=== PATIENT | female | born 1955 | race Caucasian/White ===

== ENCOUNTER → 2016-07-23 | Outpatient (CLI) | payer MEDICARE ==
[~2016-07-23] MED LIST: ACET500T3 PO; AMBI5TAB PO; ASPI1TAB69 PO; BENA25CA2 PO; BIOIDENTICAL HORM TOP; CHOL1CAP32 PO; FERR1TAB21 PO; GABA PO; GUAI100S5 PO; LACTCAP8 PO; LORA-373 PO; LORA1TAB12 PO; MULTCAP2 PO; OMEG1CAP28 PO; ROLLER WALKER1 MI1; VENTAER INH; VITA250T3 PO; ZOVI400T PO; [UNRECOGNIZED DRUG - CODE] PO
== END ==
LOC: PLAB 13:42
PROVIDERS: ATTEND Family Medicine
DX: M81.0 Age-related osteoporosis without current pathological fracture (principal)
CPT/HCPCS: 36415; 82306

== ENCOUNTER → 2016-10-21 | Outpatient (CLI) | payer MEDICARE ==
[~2016-10-21] MED LIST changes: -GABA PO; -GUAI100S5 PO; -LORA-373 PO
[2016-10-21 17:21] LABS: AUTOMATED NEUTROPHIL # 1.6 TH/MM3 (1.8-7.7); BASOPHIL % 0.6 % (0.0-2.0); EOSINOPHIL % 0.7 % (0.0-4.0); HEMATOCRIT 37.2 % (35.0-46.0); HEMO FLAGS DIFF FINAL; LYMPH % 35.3 % (9.0-44.0); LYMPHOCYTE # 1.1 TH/MM3 (1.0-4.8); MEAN CELL VOLUME 87.7 FL (80.0-100.0); MEAN CORPUSCULAR HEMOGLOBIN 28.9 PG (27.0-34.0); MONO % 10.6 % (0.0-8.0); NEUT % 52.8 % (16.0-70.0); PLATELET COUNT 204 TH/MM3 (150-450); RED BLOOD COUNT 4.24 MIL/MM3 (4.00-5.30); RED CELL DISTRIBUTION WIDTH 13.3 % (11.6-17.2)
== END ==
LOC: PLAB 14:27
PROVIDERS: ATTEND Family Medicine
DX: E55.9 Vitamin D deficiency, unspecified (principal)
CPT/HCPCS: 36415; 82652; 85025

== ENCOUNTER → 2017-02-17 | Outpatient (CLI) | payer MEDICARE, OTHER ==
[~2017-02-17] MED LIST changes: +CIPR500T2 PO; +COUM4TAB PO; +COUM5TAB PO; +ENDO10TA8 PO; +ENOX60P SQ; +HYDR-3516 PO; +MACR100C2 PO; +OXYC-259 PO; +OXYC1TAB63 PO; +PERI8.6T PO; +PRAD150C PO; +TRAM50TA PO; +WARF-21 PO; +WARF-23 PO; +WARF-58 PO; +WARF-60 PO; +[UNRECOGNIZED DRUG - REMARK] SQ
[2017-02-17 12:22] LABS: POTASSIUM 4.2 MEQ/L (3.5-5.1)
[2017-02-17 12:25] LABS: BICARBONATE 29.6 MEQ/L (21.0-32.0)
== END ==
LOC: PLAB 10:41
PROVIDERS: ATTEND Family Medicine
DX: M81.0 Age-related osteoporosis without current pathological fracture (principal); I34.0 Nonrheumatic mitral (valve) insufficiency; R07.9 Chest pain, unspecified
CPT/HCPCS: 80048; 82306; 85379

== ENCOUNTER → 2017-02-20 | Outpatient (CLI) | payer MEDICARE, OTHER ==
[~2017-02-20] MED LIST changes: -TRAM50TA PO
[2017-02-20 17:09] LABS: ALKALINE PHOSPHATASE 105 U/L (45-117); TOTAL BILIRUBIN ADULT 0.5 MG/DL (0.2-1.0)
[2017-02-20 17:44] LABS: ALT (GPT) 20 U/L (10-53); ANION GAP 9 MEQ/L (5-15); AST (GOT) 43 U/L (15-37); BICARBONATE 26.5 MEQ/L (21.0-32.0); BLOOD UREA NITROGEN 9 MG/DL (7-18); CHLORIDE 102 MEQ/L (98-107); GLOMERULAR FILTRATION RATE 79 ML/MIN (>89); SODIUM (NA) 137 MEQ/L (136-145)
[2017-02-20 18:00] LABS: POTASSIUM 4.4 MEQ/L (3.5-5.1)
== END ==
LOC: PLAB 13:39
PROVIDERS: ATTEND Family Medicine
DX: R30.0 Dysuria (principal); S22.39XD Fracture of one rib, unspecified side, subsequent encounter for fracture with routine healing; X58.XXXD Exposure to other specified factors, subsequent encounter
CPT/HCPCS: 36415; 80053

== ENCOUNTER → 2017-02-21 | Outpatient (CLI) | payer MEDICARE, OTHER ==
[2017-02-21 12:49] LABS: AUTOMATED NEUTROPHIL # 3.4 TH/MM3 (1.8-7.7); BASOPHIL % 0.8 % (0.0-2.0); EOSINOPHIL % 0.7 % (0.0-4.0); LYMPH % 21.2 % (9.0-44.0); LYMPHOCYTE # 0.9 TH/MM3 (1.0-4.8); MEAN CELL VOLUME 83.4 FL (80.0-100.0); MEAN CORPUSCULAR HGB CONC 33.5 % (32.0-36.0); MONO % 5.3 % (0.0-8.0); PLATELET COUNT 288 TH/MM3 (150-450); RED BLOOD COUNT 4.32 MIL/MM3 (4.00-5.30); RED CELL DISTRIBUTION WIDTH 13.7 % (11.6-17.2); WHITE BLOOD COUNT 4.5 TH/MM3 (4.0-11.0)
[2017-02-21 12:55] LABS: HEMO FLAGS AUTO DIFF
[2017-02-21 14:00] LABS: SCAN/DIFF AUTO DIFF CONFIRMED
== END ==
LOC: PLAB 12:19
PROVIDERS: ATTEND Family Medicine
DX: S36.112A Contusion of liver, initial encounter (principal); X58.XXXA Exposure to other specified factors, initial encounter
CPT/HCPCS: 36415; 85025

== ENCOUNTER 2017-03-07 19:07 | Observation (INO) | payer MEDICARE, OTHER ==
[~2017-03-07] VITALS: Ht 165.1 cm; Wt 53.0 kg
[~2017-03-07 19:07] MED LIST changes: -COUM4TAB PO; -COUM5TAB PO; -ENOX60P SQ; -HYDR-3516 PO; -MACR100C2 PO; -OXYC1TAB63 PO; -WARF-21 PO; -WARF-23 PO; -WARF-58 PO; -WARF-60 PO; -[UNRECOGNIZED DRUG - REMARK] SQ
[2017-03-07 19:11] VITALS: BP 130/83; PULSE 88; RESP 18; TEMP 99.8; O2SAT 96
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
[2017-03-07] MEDS ORDERED: LACTULOSE SYRUP 20 GM/30 ML CUP PO PRN (21:45)
[2017-03-07] MEDS ORDERED: SENNOSIDES 8.6 MG TAB PO PRN (21:45)
[2017-03-07] MEDS ORDERED: MAGNESIUM HYDROXIDE SUSP 30 ML CUP PO PRN (21:45)
[2017-03-07] MEDS ORDERED: NALOXONE HCL 0.4 MG/ML AMP IV PRN (21:45)
[2017-03-07] MEDS ORDERED: BISACODYL 10 MG SUPP RECTAL PRN (21:45)
[2017-03-07] MEDS ORDERED: SODIUM CHLORIDE 0.9% FLUSH 10 ML FLUSH IV FLUSH PRN (21:45)
[2017-03-07] MEDS ORDERED: ONDANSETRON HCL 4 MG/2 ML VIAL IVP PRN (21:45)
[2017-03-07] MEDS ORDERED: ALBUTEROL SULFATE 90 MCG/ACT HFA 8 GM INHALER INH PRN (21:45)
[2017-03-07] MEDS ORDERED: ACETAMINOPHEN 325 MG TAB PO PRN (21:45)
[2017-03-07 22:00] VITALS: BP 132/84; PULSE 77; RESP 16; O2SAT 97
[2017-03-07] MEDS ORDERED: PILL SPLITTER OTHER PRN (22:00)
[2017-03-07] MEDS: DABIGATRAN ETEXILATE 150 MG CAP PO SCH (22:50)
[2017-03-08] VITALS (9 sets, daily range): BP systolic 96–147; BP diastolic 57–83; PULSE 71–81; RESP 18–20; TEMP 97.8–98.7; O2SAT 95–100
[2017-03-08] MEDS ORDERED: oxyCODONE/ACETAMINOPHEN 10 MG/325 MG TAB PO SCH
[2017-03-08] MEDS: oxyCODONE/ACETAMINOPHEN 10 MG/325 MG TAB PO PRN ×3 (00:08→20:06)
[2017-03-08] MEDS: LORazepam 1 MG TAB PO PRN ×2 (01:47→20:30)
[2017-03-08 08:50] LABS: AUTOMATED NEUTROPHIL # 1.2 TH/MM3 (1.8-7.7); EOSINOPHIL # 0.1 TH/MM3 (0-0.4); EOSINOPHIL % 2.6 % (0.0-4.0); HEMATOCRIT 33.5 % (35.0-46.0); HEMO FLAGS DIFF FINAL; LYMPH % 42.1 % (9.0-44.0); LYMPHOCYTE # 1.3 TH/MM3 (1.0-4.8); MEAN CORPUSCULAR HEMOGLOBIN 28.2 PG (27.0-34.0); MEAN CORPUSCULAR HGB CONC 33.1 % (32.0-36.0); MONO % 14.3 % (0.0-8.0); PLATELET COUNT 248 TH/MM3 (150-450); RED BLOOD COUNT 3.94 MIL/MM3 (4.00-5.30); RED CELL DISTRIBUTION WIDTH 14.7 % (11.6-17.2); WHITE BLOOD COUNT 3.1 TH/MM3 (4.0-11.0)
[2017-03-08 08:58] LABS: APTT (PATIENT) 34.7 SEC (24.3-30.1); INTERNATIONAL NORMALIZED RATIO 1.1 RATIO; PROTHROMBIN TIME - PATIENT 11.7 SEC (9.8-11.6)
[2017-03-08] MEDS ORDERED: BIOIDENTICAL HORM SCH (09:00)
[2017-03-08] MEDS ORDERED: ASCORBIC ACID 250 MG PO SCH (09:00)
[2017-03-08] MEDS ORDERED: NON-FORMULARY DRUG (Omega-3-Acid Ethyl Esters 2 GM) PO SCH (09:00)
[2017-03-08] MEDS: ASCORBIC ACID 500 MG TAB PO SCH (09:00)
[2017-03-08] MEDS ORDERED: [UNRECOGNIZED DRUG - OTHER] OTHER SCH (09:00)
[2017-03-08] MEDS ORDERED: [UNRECOGNIZED DRUG - OTHER] PO SCH (09:00)
[2017-03-08] MEDS: SODIUM CHLORIDE 0.9% FLUSH 10 ML FLUSH IV FLUSH SCH ×2 (09:24→20:21)
[2017-03-08] MEDS: DOCUSATE SODIUM 50 MG/SENNA 8.6 MG TAB PO SCH ×2 (09:24→20:04)
[2017-03-08 09:45] LABS: ALKALINE PHOSPHATASE 95 U/L (45-117); ALT (GPT) 21 U/L (10-53); ANION GAP 9 MEQ/L (5-15); AST (GOT) 23 U/L (15-37); BLOOD UREA NITROGEN 10 MG/DL (7-18); CHLORIDE 107 MEQ/L (98-107); GLOMERULAR FILTRATION RATE 93 ML/MIN (>89); POTASSIUM 3.8 MEQ/L (3.5-5.1); SODIUM (NA) 141 MEQ/L (136-145); TOTAL BILIRUBIN ADULT 0.3 MG/DL (0.2-1.0)
[2017-03-08] MEDS: DABIGATRAN ETEXILATE 150 MG CAP PO SCH ×2 (10:03→20:04)
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
--- NOTE | 2017-03-08 14:25 | HHI.FF ---
Face to Face Verification Diagnosis: (1) Pulmonary embolism (2) Liver laceration, closed Home Health Nursing Order: Medical education Signs/symptoms of disease process Medication education-adverse effect Instructions: INR checks, Lovenox SQ administration education I have seen patient Clemente Holloway on 03/08/17. My clinical findings support the need for the requested home health care services because: Injectable med education/admin I certify that my clinical findings support that this patient is homebound because: Need for psychosocial assistance Zach Huffman MD R3 Mar 08, 2017 14:25
[2017-03-08] MEDS: ENOXAPARIN SODIUM 60 MG/0.6 ML SYRINGE SQ SCH (15:07)
[2017-03-08 15:44] LABS: REVIEW FLAG FINAL
[2017-03-08 16:15] LABS: TRANSFERRIN IRON PROFILE 247 MG/DL (200-360)
[2017-03-08 16:18] LABS: FERRITIN 78 NG/ML (8-252)
[2017-03-08] MEDS ORDERED: ENOX60P SQ (16:51)
[2017-03-08] MEDS ORDERED: WARF-23 PO (17:02)
[2017-03-09 00:23] VITALS: BP 100/61; PULSE 78; RESP 16; TEMP 98.5; O2SAT 100
[2017-03-09] MEDS: oxyCODONE/ACETAMINOPHEN 10 MG/325 MG TAB PO PRN (02:40)
[2017-03-09] MEDS: ENOXAPARIN SODIUM 60 MG/0.6 ML SYRINGE SQ SCH (02:42)
[2017-03-09 03:57] VITALS: TEMP 98.6
[2017-03-09] MEDS: LORazepam 1 MG TAB PO PRN (04:05)
[2017-03-09 04:39] VITALS: BP 101/59; PULSE 74; RESP 18; TEMP 98.4; O2SAT 97
[2017-03-09 07:11] VITALS: O2SAT 98
[2017-03-09 07:45] VITALS: BP 95/58; PULSE 67; RESP 14; TEMP 97.8; O2SAT 97
[2017-03-09] MEDS: SODIUM CHLORIDE 0.9% FLUSH 10 ML FLUSH IV FLUSH SCH (09:00)
[2017-03-09] MEDS: ASCORBIC ACID 500 MG TAB PO SCH (09:00)
[2017-03-09] MEDS: DOCUSATE SODIUM 50 MG/SENNA 8.6 MG TAB PO SCH (09:00)
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
[2017-03-09] MEDS ORDERED: WARFARIN SOD 5 MG TAB PO SCH (16:00)
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
[2017-03-11] MEDS ORDERED: [UNRECOGNIZED DRUG - REMARK] SQ (11:23)
[2017-03-13] MEDS ORDERED: WARF-21 PO (08:37)
[2017-03-13 13:51] LABS: THROMBIN TIME FOR LA ND sec (13-19)
[2017-03-14] MEDS ORDERED: WARF-60 PO (16:11)
[2017-03-22] MEDS ORDERED: MACR100C2 PO (10:10)
[2017-03-27] MEDS ORDERED: WARF-60 PO (11:18)
[2017-03-27] MEDS ORDERED: COUM5TAB PO (11:18)
[2017-03-27] MEDS ORDERED: OXYC1TAB63 PO (16:13)
[2017-04-04] MEDS ORDERED: COUM4TAB PO (16:37)
[2017-04-15] MEDS ORDERED: WARF-58 PO (10:56)
[2017-04-15] MEDS ORDERED: OXYC1TAB63 PO (11:27)
[2017-04-21] MEDS ORDERED: HYDR-3516 PO (15:49)
== END 2017-03-09 14:11 | disposition home or self-care (01) ==
LOC: NEPD 19:07 → NEDA 22:02 → NEPFCDU 03-08 01:37
PROVIDERS: ADMIT Family Medicine; ATTEND Family Medicine
DX: I26.99 Other pulmonary embolism without acute cor pulmonale (principal); S36.113A Laceration of liver, unspecified degree, initial encounter; S22.49XA Multiple fractures of ribs, unspecified side, initial encounter for closed fracture; I48.91 Unspecified atrial fibrillation; D72.819 Decreased white blood cell count, unspecified; D64.9 Anemia, unspecified; F43.10 Post-traumatic stress disorder, unspecified; F32.9 Major depressive disorder, single episode, unspecified; M85.80 Other specified disorders of bone density and structure, unspecified site; Z79.01 Long term (current) use of anticoagulants; Z95.2 Presence of prosthetic heart valve; S36.112D Contusion of liver, subsequent encounter
CPT/HCPCS: 80053; 81240; 81241; 81291; 82232; 82728; 83090; 83540; 83550; 83695; 85014; 85018; 85025; 85240; 85303; 85306; 85307; 85597; 85598; 85610; 85613; 85730; 86147; 96372; 99285; G0378; J1650; 36415; 85027

== ENCOUNTER → 2017-03-07 | Outpatient (CLI) | payer MEDICARE, OTHER ==
[~2017-03-07] MED LIST changes: -AMBI5TAB PO; -BENA25CA2 PO; -OXYC-259 PO
[2017-03-07 13:43] LABS: HEMATOCRIT 39.4 % (35.0-46.0); MEAN CELL VOLUME 85.8 FL (80.0-100.0); MEAN CORPUSCULAR HEMOGLOBIN 27.3 PG (27.0-34.0); MEAN CORPUSCULAR HGB CONC 31.8 % (32.0-36.0); PLATELET COUNT 293 TH/MM3 (150-450); RED BLOOD COUNT 4.59 MIL/MM3 (4.00-5.30); RED CELL DISTRIBUTION WIDTH 14.4 % (11.6-17.2); REVIEW FLAG FINAL
[2017-03-07 13:54] LABS: ALT (GPT) 25 U/L (10-53); ANION GAP 10 MEQ/L (5-15); AST (GOT) 25 U/L (15-37); BICARBONATE 26.8 MEQ/L (21.0-32.0); BLOOD UREA NITROGEN 11 MG/DL (7-18); CHLORIDE 104 MEQ/L (98-107); GLOMERULAR FILTRATION RATE 74 ML/MIN (>89); GLUCOSE,FASTING 81 MG/DL (74-99); POTASSIUM 4.7 MEQ/L (3.5-5.1); SODIUM (NA) 141 MEQ/L (136-145)
[2017-03-07 13:57] LABS: ALKALINE PHOSPHATASE 93 U/L (45-117); TOTAL BILIRUBIN ADULT 0.5 MG/DL (0.2-1.0)
== END ==
LOC: PLAB 12:02
PROVIDERS: ATTEND Family Medicine
DX: S36.112D Contusion of liver, subsequent encounter (principal); X58.XXXD Exposure to other specified factors, subsequent encounter
CPT/HCPCS: 36415; 80053; 85027

== ENCOUNTER → 2017-03-11 | Outpatient (CLI) | payer MEDICARE, OTHER ==
[~2017-03-11] MED LIST changes: -ACET500T3 PO; -ASPI1TAB69 PO; +COUM4TAB PO; +COUM5TAB PO; +ENOX60P SQ; -FERR1TAB21 PO; +HYDR-3516 PO; +MACR100C2 PO; -MULTCAP2 PO; +OXYC1TAB63 PO; +WARF-21 PO; +WARF-23 PO; +WARF-58 PO; +WARF-60 PO; -[UNRECOGNIZED DRUG - CODE] PO; +[UNRECOGNIZED DRUG - REMARK] SQ
[2017-03-11 14:35] LABS: INTERNATIONAL NORMALIZED RATIO 1.1 RATIO
[2017-03-11 16:23] LABS: AUTOMATED NEUTROPHIL # 2.3 TH/MM3 (1.8-7.7); BASOPHIL % 0.9 % (0.0-2.0); EOSINOPHIL # 0.1 TH/MM3 (0-0.4); EOSINOPHIL % 1.5 % (0.0-4.0); HEMATOCRIT 36.2 % (35.0-46.0); HEMO FLAGS DIFF FINAL; LYMPH % 21.3 % (9.0-44.0); LYMPHOCYTE # 0.7 TH/MM3 (1.0-4.8); MEAN CELL VOLUME 84.8 FL (80.0-100.0); MEAN CORPUSCULAR HEMOGLOBIN 27.8 PG (27.0-34.0); MEAN CORPUSCULAR HGB CONC 32.8 % (32.0-36.0); MONO % 8.5 % (0.0-8.0); NEUT % 67.8 % (16.0-70.0); PLATELET COUNT 251 TH/MM3 (150-450); RED BLOOD COUNT 4.26 MIL/MM3 (4.00-5.30); RED CELL DISTRIBUTION WIDTH 15.1 % (11.6-17.2); WHITE BLOOD COUNT 3.4 TH/MM3 (4.0-11.0)
[2017-03-11 16:35] LABS: BACTERIA, URINE MOD /hpf; BLOOD, URINE NEG (NEG); COMMENT (UR) CULTURE INDICATED; CULTURE IF INDICATED CULTURE INDICATED; GLUCOSE,URINE NEG (NEG); HYALINE CAST, URINE 12 /lpf (RARE); KETONE, URINE TRACE mg/dL (NEG); MUCUS URINE MANY /lpf (OCC); NITRITE,URINE NEG (NEG); SQUAMOUS EPITHELIAL CELL URINE <1 /hpf (0-5); URINE COLOR DARK-YELLOW (YELLW/STRAW)
[2017-03-11 17:25] LABS: ALKALINE PHOSPHATASE 88 U/L (45-117); ALT (GPT) 115 U/L (10-53); ANION GAP 8 MEQ/L (5-15); AST (GOT) 105 U/L (15-37); BICARBONATE 28.5 MEQ/L (21.0-32.0); BLOOD UREA NITROGEN 9 MG/DL (7-18); CHLORIDE 105 MEQ/L (98-107); GLOMERULAR FILTRATION RATE 72 ML/MIN (>89); GLUCOSE,FASTING 87 MG/DL (74-99); POTASSIUM 4.2 MEQ/L (3.5-5.1); SODIUM (NA) 141 MEQ/L (136-145); TOTAL BILIRUBIN ADULT 0.2 MG/DL (0.2-1.0)
== END ==
LOC: PLAB 12:38
PROVIDERS: ATTEND Family Medicine
DX: I26.99 Other pulmonary embolism without acute cor pulmonale (principal); R35.0 Frequency of micturition; R82.90 Unspecified abnormal findings in urine
CPT/HCPCS: 36415; 80053; 81001; 85025; 85610; 87086; 99214; G0463

== ENCOUNTER → 2017-03-14 | Outpatient (CLI) | payer MEDICARE, OTHER ==
[~2017-03-14] MED LIST changes: -PRAD150C PO; -WARF-23 PO
[2017-03-14 11:32] LABS: INTERNATIONAL NORMALIZED RATIO 3.8 RATIO
== END ==
LOC: CLAB 10:58
PROVIDERS: ATTEND Family Medicine
DX: I26.99 Other pulmonary embolism without acute cor pulmonale (principal)
CPT/HCPCS: 36415; 85610

== ENCOUNTER → 2017-03-19 | Outpatient (CLI) | payer MEDICARE, OTHER ==
[~2017-03-19] MED LIST changes: -CIPR500T2 PO; -ENOX60P SQ; -WARF-21 PO
[2017-03-19 13:41] LABS: INTERNATIONAL NORMALIZED RATIO 4.2 RATIO; PROTHROMBIN TIME - PATIENT 49.6 SEC (9.8-11.6)
== END ==
LOC: PLAB 12:58
PROVIDERS: ATTEND Family Medicine
DX: I26.99 Other pulmonary embolism without acute cor pulmonale (principal)
CPT/HCPCS: 36415; 85610

== ENCOUNTER → 2017-05-14 | Outpatient (CLI) | payer MEDICARE, OTHER ==
[~2017-05-14] MED LIST changes: -BIOIDENTICAL HORM TOP; -COUM4TAB PO; -COUM5TAB PO; -ENDO10TA8 PO; -MACR100C2 PO; -OXYC1TAB63 PO; -WARF-60 PO
[2017-05-14 13:57] LABS: AUTOMATED NEUTROPHIL # 1.4 TH/MM3 (1.8-7.7); BASOPHIL % 0.9 % (0.0-2.0); EOSINOPHIL % 0.7 % (0.0-4.0); HEMATOCRIT 37.7 % (35.0-46.0); HEMO FLAGS DIFF FINAL; LYMPHOCYTE # 1.2 TH/MM3 (1.0-4.8); MEAN CELL VOLUME 86.2 FL (80.0-100.0); MEAN CORPUSCULAR HEMOGLOBIN 28.2 PG (27.0-34.0); MEAN CORPUSCULAR HGB CONC 32.8 % (32.0-36.0); MONO % 10.3 % (0.0-8.0); NEUT % 48.1 % (16.0-70.0); PLATELET COUNT 298 TH/MM3 (150-450); RED BLOOD COUNT 4.37 MIL/MM3 (4.00-5.30); RED CELL DISTRIBUTION WIDTH 14.8 % (11.6-17.2); WHITE BLOOD COUNT 2.9 TH/MM3 (4.0-11.0)
[2017-05-14 14:25] LABS: INTERNATIONAL NORMALIZED RATIO 2.2 RATIO; PROTHROMBIN TIME - PATIENT 24.6 SEC (9.8-11.6)
[2017-05-14 15:01] LABS: ANION GAP 8 MEQ/L (5-15); BLOOD UREA NITROGEN 7 MG/DL (7-18); CHLORIDE 105 MEQ/L (98-107); POTASSIUM 4.3 MEQ/L (3.5-5.1); SODIUM (NA) 141 MEQ/L (136-145)
[2017-05-14 15:14] LABS: TRANSFERRIN IRON PROFILE 248 MG/DL (200-360)
[2017-05-14 15:16] LABS: ALKALINE PHOSPHATASE 89 U/L (45-117); ALT (GPT) 22 U/L (10-53); AST (GOT) 22 U/L (15-37); GLOMERULAR FILTRATION RATE 83 ML/MIN (>89); GLUCOSE,FASTING 77 MG/DL (74-99); HDL CHOLESTEROL 100.4 MG/DL (40.0-60.0); LDL CHOLESTEROL 125 MG/DL (0-99); TOTAL BILIRUBIN ADULT 0.5 MG/DL (0.2-1.0)
[2017-05-14 15:18] LABS: FERRITIN 87 NG/ML (8-252); FREE T4 1.29 NG/DL (0.76-1.46)
[2017-05-15 23:52] LABS: DEHYDROEPIANDROSTERONE SULFATE 31 mcg/dL (8-188)
== END ==
LOC: PLAB 11:34
PROVIDERS: ATTEND Dermatology MOHS-Micrographic Surgery
DX: L30.9 Dermatitis, unspecified (principal); I26.09 Other pulmonary embolism with acute cor pulmonale; E78.2 Mixed hyperlipidemia; L65.9 Nonscarring hair loss, unspecified; E55.9 Vitamin D deficiency, unspecified; Z79.899 Other long term (current) drug therapy
CPT/HCPCS: 36415; 80053; 80061; 82306; 82627; 82728; 83540; 83550; 84403; 84439; 84443; 84480; 85025; 85610

== ENCOUNTER → 2017-05-26 | Outpatient (CLI) | payer MEDICARE, OTHER ==
[2017-05-26 14:48] LABS: INTERNATIONAL NORMALIZED RATIO 1.8 RATIO; PROTHROMBIN TIME - PATIENT 20.6 SEC (9.8-11.6)
== END ==
LOC: PLAB 13:14
PROVIDERS: ATTEND Family Medicine
DX: I26.09 Other pulmonary embolism with acute cor pulmonale (principal)
CPT/HCPCS: 36415; 85610

== ENCOUNTER → 2017-06-05 | Outpatient (CLI) | payer MEDICARE, OTHER ==
[2017-06-05 15:13] LABS: PROTHROMBIN TIME - PATIENT 23.3 SEC (9.8-11.6)
== END ==
LOC: PLAB 14:13
PROVIDERS: ATTEND Family Medicine
DX: I26.09 Other pulmonary embolism with acute cor pulmonale (principal)
CPT/HCPCS: 36415; 85610

== ENCOUNTER → 2017-06-11 | Outpatient (CLI) | payer MEDICARE, OTHER ==
[2017-06-11 14:00] LABS: INTERNATIONAL NORMALIZED RATIO 1.4 RATIO; PROTHROMBIN TIME - PATIENT 14.6 SEC (9.8-11.6)
== END ==
LOC: PLAB 13:21
PROVIDERS: ATTEND Family Medicine
DX: I26.09 Other pulmonary embolism with acute cor pulmonale (principal)
CPT/HCPCS: 36415; 85610

== ENCOUNTER → 2017-06-17 | Outpatient (CLI) | payer MEDICARE, OTHER ==
[2017-06-17 14:39] LABS: PROTHROMBIN TIME - PATIENT 10.1 SEC (9.8-11.6)
[2017-06-17 16:30] LABS: RHEUMATOID FACTOR TRIGGER LESS THAN 10.0 IU/ML (0.0-14.9)
[2017-06-24 23:53] LABS: DNA AUTOANTIBODY SINGLE STRAND LESS THAN 69.0 U/mL (<230)
== END ==
LOC: PLAB 13:12
PROVIDERS: ATTEND Family Medicine
DX: I26.09 Other pulmonary embolism with acute cor pulmonale (principal); R76.0 Raised antibody titer
CPT/HCPCS: 36415; 83090; 85300; 85303; 85306; 85610; 86038; 86140; 86147; 86225; 86226; 86430

== ENCOUNTER → 2017-09-02 | Outpatient (CLI) | payer MEDICARE, OTHER ==
[~2017-09-02] MED LIST changes: -WARF-58 PO
[2017-09-02 13:47] LABS: RHEUMATOID FACTOR SCREEN NEGATIVE (NEGATIVE)
[2017-09-04 09:51] LABS: DRVVT 1:1 MIX ND (CORRECTED); DRVVT CONFIRM ND (NEGATIVE); HEXAGONAL PHASE CONFIRM ND (NEGATIVE)
[2017-09-04 14:49] LABS: PROTEIN C ACTIVITY 133 % (70 - 150); PROTEIN S ACTIVITY 105 % (65 - 160)
[2017-09-04 16:12] LABS: CARDIOLIPIN IGG AB <9.4 GPL; CARDIOLIPIN IGM AB <9.4 MPL; DNA DOUBLE STRANDED AB <12.3 IU/mL
[2017-09-05 07:50] LABS: ANTI-THROMBIN III ACT 123 (80-120)
[2017-09-06 23:52] LABS: HOMOCYSTEINE 7.4 umol/L (<10.4)
== END ==
LOC: PLAB 11:15
PROVIDERS: ATTEND Family Medicine
DX: I26.99 Other pulmonary embolism without acute cor pulmonale (principal)
CPT/HCPCS: 36415; 83090; 85300; 85303; 85306; 85613; 85730; 86038; 86140; 86147; 86225; 86226; 86430

== ENCOUNTER → 2017-12-17 | Outpatient (CLI) | payer MEDICARE, OTHER ==
[2017-12-17 17:53] LABS: AUTOMATED NEUTROPHIL # 1.4 TH/MM3 (1.8-7.7); BASOPHIL % 0.8 % (0.0-2.0); EOSINOPHIL % 0.7 % (0.0-4.0); HEMATOCRIT 36.9 % (35.0-46.0); HEMOGLOBIN 12.4 GM/DL (11.6-15.3); LYMPH % 42.1 % (9.0-44.0); LYMPHOCYTE # 1.2 TH/MM3 (1.0-4.8); MEAN CELL VOLUME 88.9 FL (80.0-100.0); MEAN CORPUSCULAR HEMOGLOBIN 29.9 PG (27.0-34.0); MEAN CORPUSCULAR HGB CONC 33.6 % (32.0-36.0); MEAN PLATELET VOLUME 10.3 FL (7.0-11.0); MONO % 7.9 % (0.0-8.0); MONOCYTE # 0.2 TH/MM3 (0-0.9); NEUT % 48.5 % (16.0-70.0); PLATELET COUNT 264 TH/MM3 (150-450); RED BLOOD COUNT 4.15 MIL/MM3 (4.00-5.30); RED CELL DISTRIBUTION WIDTH 13.2 % (11.6-17.2); WHITE BLOOD COUNT 2.8 TH/MM3 (4.0-11.0)
[2017-12-17 18:16] LABS: ALBUMIN 4.1 GM/DL (3.4-5.0); ALT (GPT) 19 U/L (10-53); AST (GOT) 21 U/L (15-37); BICARBONATE 25.4 MEQ/L (21.0-32.0); BLOOD UREA NITROGEN 7 MG/DL (7-18); CALCIUM 8.9 MG/DL (8.5-10.1); CHLORIDE 107 MEQ/L (98-107); CHOLESTEROL 233 MG/DL (120-200); CREATININE 0.66 MG/DL (0.50-1.00); GLOMERULAR FILTRATION RATE 91 ML/MIN (>89); GLUCOSE,FASTING 85 MG/DL (74-99); IRON (FE) 70 MCG/DL (50-170); SODIUM (NA) 142 MEQ/L (136-145); TRIGLYCERIDES 118 MG/DL (42-150)
[2017-12-17 18:19] LABS: % SATURATION IRON PROFILE 20.2 % (20-50); ALKALINE PHOSPHATASE 67 U/L (45-117); CHOLESTEROL/ HDL RATIO 2.88 RATIO; FERRITIN 61 NG/ML (8-252); HDL CHOLESTEROL 80.9 MG/DL (40.0-60.0); LDL CHOLESTEROL 129 MG/DL (0-99); TOTAL BILIRUBIN ADULT 0.5 MG/DL (0.2-1.0); TOTAL IRON BINDING CAPACITY 346 MCG/DL (250-450); TOTAL PROTEIN 7.3 GM/DL (6.4-8.2)
[2017-12-17 18:51] LABS: BILIRUBIN, URINE NEG (NEG); BLOOD, URINE NEG (NEG); GLUCOSE,URINE NEG (NEG); KETONE, URINE NEG (NEG); NITRITE,URINE NEG (NEG); PH, URINE 7.5 (5.0-8.5); URINE COLOR LIGHT-YELLOW (YELLW/STRAW); URINE LEUKOCYTE ESTERASE NEG (NEG)
== END ==
LOC: PLAB 14:04
PROVIDERS: ATTEND Family Medicine
DX: D50.9 Iron deficiency anemia, unspecified (principal); E55.9 Vitamin D deficiency, unspecified; R30.0 Dysuria; Z13.6 Encounter for screening for cardiovascular disorders
CPT/HCPCS: 36415; 80053; 80061; 81001; 82306; 82652; 82728; 83540; 83550; 85025